=== PATIENT | female | born 1940 | race Caucasian/White ===

== ENCOUNTER 2017-05-26 17:05 | Inpatient (IN) | payer MEDICARE, OTHER ==
[~2017-05-26] VITALS: Ht 154.9 cm; Wt 90.3 kg
--- NOTE | 2017-05-26 17:10 | NUR ---
PT BIBRA FROM SNF TO ER BED 12. PER REPORT, PT IS AGGRESSIVE TO STAFF. PT IS KAZAKH SPEAKING, AAOX 1 TO NAME. WAS GIVEN ULTRAM AND XANAX AT 1330 PRIOR TO TRANSPORT. 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 PLACED ON MONITOR. STABLE VITALS. AWAITING MD ESPINOZA..
--- NOTE | 2017-05-26 17:13 | NUR ---
DR NASSAR AT BEDSIDE FOR EVAL.
--- NOTE | 2017-05-26 17:19 | NUR ---
DIGITAL MEDIA BUYER AT BEDSIDE FOR EVAL.
--- NOTE | 2017-05-26 17:20 | NUR ---
Note undone in EDM - 05/26/17 at 1827 by LALA PT BIBRA FROM SNF TO ER BED 12. PER REPORT, PT IS AGGRESSIVE TO STAFF. PT IS KOREAN SPEAKING, AAOX 1 TO NAME. WAS GIVEN ULTRAM AND XANAX AT 1330 PRIOR TO TRANSPORT. 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 PLACED ON MONITOR. STABLE VITALS. AWAITING MD ESPINOZA..
[2017-05-26 17:24] LABS: BASOPHILS % (AUTO) 0.4 % (0.0-2.0); EOSINOPHILS # (AUTO) 0.2 /CMM (0.0-0.7); EOSINOPHILS % (AUTO) 3.8 % (0.0-6.0); HEMATOCRIT 37 % (33-45); HEMOGLOBIN 12.3 g/dL (11.5-14.8); LYMPHOCYTES % (AUTO) 31.7 % (20.0-44.0); MEAN CORPUSCULAR HEMOGLOBIN 32 PG (26.0-33.0); MEAN CORPUSCULAR HGB CONC 34 g/dl (31.0-36.0); MEAN CORPUSCULAR VOLUME 96 fL (82-100); MONOCYTES # (AUTO) 0.3 /CMM (0.1-1.30); MONOCYTES % (AUTO) 5.3 % (2.0-12.0); NEUTROPHILS # (AUTO) 3.9 /CMM (1.8-8.9); NEUTROPHILS % (AUTO) 58.8 % (43.0-81.0); PLATELET COUNT (AUTO) 192 /CMM (150-450); RDW COEFFICIENT OF VARIATION 12.7 (11.5-15.0); RED BLOOD CELL COUNT(AUTO) 3.83 MIL/uL (4.0-5.2); WHITE BLOOD COUNT (AUTO) 6.4 K/uL (4.3-11.0)
[2017-05-26] MEDS ORDERED: PARO20TA6 PO (17:30)
[2017-05-26] MEDS ORDERED: QUET25TA PO (17:30)
[2017-05-26] MEDS ORDERED: TRAM50TA2 PO (17:30)
[2017-05-26] MEDS ORDERED: ALPR0.5T8 PO (17:30)
[2017-05-26] MEDS ORDERED: IBUP-1955 PO (17:30)
[2017-05-26] MEDS ORDERED: ACET-868 PO (17:30)
[2017-05-26] MEDS ORDERED: ATEN-170 PO (17:30)
[2017-05-26] MEDS ORDERED: GABA-534 PO (17:30)
[2017-05-26] MEDS ORDERED: LOSA50TA3 PO (17:30)
[2017-05-26] MEDS ORDERED: DONE5TAB3 PO (17:30)
[2017-05-26] MEDS ORDERED: FAMO20TA8 PO (17:30)
[2017-05-26] MEDS ORDERED: WARF3TAB29 PO (17:30)
[2017-05-26 17:40] LABS: CALCIUM, SERUM 8.6 mg/dL (8.5-10.1); CARBON DIOXIDE 27 mmol/L (21-32); CHLORIDE 106 mmol/L (98-107); GLUCOSE 115 mg/dL (74-106); POTASSIUM 3.7 mmol/L (3.5-5.1); SODIUM SERUM 141 mmol/L (136-145); UREA NITROGEN, BLOOD 17 mg/dL (7-18)
[2017-05-26 17:46] LABS: ALANINE AMINOTRANSFERASE 23 U/L (12-78); ALBUMIN 2.9 g/dL (3.4-5.0); ALCOHOL, BLOOD < 3 mg/dL (0-0); ALKALINE PHOSPHATASE 81 U/L (46-116); ASPARTATE AMINOTRANSFERASE 25 U/L (15-37); BILIRUBIN,DIRECT 0.1 mg/dL (0.0-0.2); BILIRUBIN,TOTAL 0.3 mg/dL (0.2-1.0); TOTAL PROTEIN, SERUM 6.7 g/dL (6.4-8.2)
[2017-05-26 17:47] LABS: SALICYLATE 0.9 mg/dL (2.8-20.0)
[2017-05-26 18:10] LABS: APPEARANCE,URINE Clear (CLEAR); BILIRUBIN,URINE Negative (NEGATIVE); BLOOD, URINE Moderate Ery/uL (NEGATIVE); COLOR,URINE Yellow (YELLOW); KETONES,URINE Negative (NEGATIVE); LEUKOCYTE ESTERASE ,URINE Negative (NEGATIVE); NITRITE, URINE Negative (NEGATIVE); PH,URINE 5.5 (5.0-8.0); PROTEIN,URINE Negative (NEGATIVE); UGLUCOSE Negative (NEGATIVE); UROBILINOGEN,URINE 0.2 EU/dL (0.2)
[2017-05-26 18:22] LABS: BACTERIA,URINE Rare /HPF (None Seen); SQUAMOUS EPITHELIAL CELL,UR Few /HPF (None Seen); WBC,URINE 0-2 /HPF (0-3)
--- NOTE | 2017-05-26 18:29 | NUR ---
CALLED JAK[facility] AT 1830 FOR PSYCH EVAL, ETA 60 MINS.
[2017-05-26 18:30] LABS: ACETAMINOPHEN < 2 ug/ml (10-30)
--- NOTE | 2017-05-26 19:21 | NUR ---
JAKOB RN AT BEDSIDE FOR PSYCH EVAL.
--- NOTE | 2017-05-26 19:42 | NUR ---
REPORT GIVEN TO CHARLEE. PT AWAITING TRANSFER TO FLOOR.
[2017-05-26] MEDS ORDERED: IBUPROFEN 400 MG TABLET PO STA (20:48)
[2017-05-26 21:00] VITALS: BP 122/50
[2017-05-26] MEDS ORDERED: ACETAMINOPHEN 325 MG TABLET PO PRN ×2 (21:00→21:30)
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
[2017-05-26] MEDS ORDERED: MAGNESIUM HYDROXIDE 30 ML UDC PO PRN (21:30)
[2017-05-26] MEDS ORDERED: MAG HYDROX/AL HYDROX/SIMETH 30 ML UDC PO PRN (21:30)
[2017-05-27 00:54] VITALS: BP 122/50
[2017-05-27 07:47] LABS: BASOPHILS % (AUTO) 0.3 % (0.0-2.0); EOSINOPHILS # (AUTO) 0.2 /CMM (0.0-0.7); EOSINOPHILS % (AUTO) 2.7 % (0.0-6.0); HEMATOCRIT 38 % (33-45); HEMOGLOBIN 12.8 g/dL (11.5-14.8); LYMPHOCYTES # (AUTO) 1.9 /CMM (0.8-4.8); LYMPHOCYTES % (AUTO) 26.1 % (20.0-44.0); MEAN CORPUSCULAR HEMOGLOBIN 32 PG (26.0-33.0); MEAN CORPUSCULAR HGB CONC 33 g/dl (31.0-36.0); MEAN CORPUSCULAR VOLUME 96 fL (82-100); MONOCYTES # (AUTO) 0.4 /CMM (0.1-1.30); MONOCYTES % (AUTO) 5.9 % (2.0-12.0); NEUTROPHILS # (AUTO) 4.7 /CMM (1.8-8.9); PLATELET COUNT (AUTO) 191 /CMM (150-450); RDW COEFFICIENT OF VARIATION 13.4 (11.5-15.0); WHITE BLOOD COUNT (AUTO) 7.2 K/uL (4.3-11.0)
[2017-05-27 08:00] VITALS: BP 141/96
[2017-05-27 08:02] LABS: ALANINE AMINOTRANSFERASE 28 U/L (12-78); ALBUMIN 3.2 g/dL (3.4-5.0); ALKALINE PHOSPHATASE 82 U/L (46-116); ASPARTATE AMINOTRANSFERASE 26 U/L (15-37); BILIRUBIN,TOTAL 0.6 mg/dL (0.2-1.0); CALCIUM, SERUM 8.6 mg/dL (8.5-10.1); CARBON DIOXIDE 27 mmol/L (21-32); CHLORIDE 109 mmol/L (98-107); CREATININE 0.7 mg/dL (0.6-1.3); GLUCOSE 96 mg/dL (74-106); POTASSIUM 3.5 mmol/L (3.5-5.1); SODIUM SERUM 145 mmol/L (136-145); TOTAL PROTEIN, SERUM 7.6 g/dL (6.4-8.2); UREA NITROGEN, BLOOD 14 mg/dL (7-18)
[2017-05-27 08:05] LABS: CHOLESTEROL 140 mg/dL (<200); HDL CHOLESTEROL 36 mg/dL (40-60); LDL 94 mg/dL (0-99); TRIGLYCERIDES 106 mg/dL (30-150)
[2017-05-27] MEDS: FAMOTIDINE (20 MG) 20 MG TABLET PO SCH (08:32)
[2017-05-27] MEDS: ATENOLOL 25 MG TABLET PO SCH ×2 (08:32→17:28)
[2017-05-27] MEDS: LOSARTAN POTASSIUM 50 MG TABLET PO SCH ×2 (08:32→17:28)
[2017-05-27] MEDS: LORAZEPAM 0.5 MG TABLET PO PRN ×2 (08:33→15:37)
[2017-05-27] MEDS: IBUPROFEN 600 MG TABLET PO SCH (08:38)
--- NOTE | 2017-05-27 12:39 | NUR ---
Initial Discharge Note: Patient resides at [facility] [address] [address] ([phone]). caseworker protective services spoke to Delia ([phone]) from the facility who confirmed that patient can return to facility when she is stable and ready for discharge. caseworker protective services will help form a safe and proper discharge.
[2017-05-27] MEDS: TRAMADOL HCL 50 MG TABLET PO PRN (13:06)
--- NOTE | 2017-05-27 13:06 | NUR ---
ADMINISTERED ULTRAM 50 MG PO PRN FOR GENERALIZED PAIN 04/04, PER PATIENT REQUEST, V/S TAKEN BP -132/78, P-78, CONTINUED MONITORING.
[2017-05-27 13:07] LABS: INR 0.99 (0.87-1.13); PROTHROMBIN TIME 10.6 SECS (9.5-12.7)
[2017-05-27] MEDS: QUETIAPINE FUMARATE 25 MG TABLET PO SCH ×2 (13:42→17:28)
--- NOTE | 2017-05-27 15:37 | NUR ---
GPS RN NOTES PATIENT ANXIOUS, DELUSIONAL, GET IRRITABLE EASILY,, ADMINISTERED ATIVAN 0.5 MG PO PRN PRESCRIBED, V/S TAKE BP-130/90, P-71, CONTINUED MONITORING. 1:1 SITTER NEXT TO THE PATIENT FOR SAFETY.
[2017-05-27 16:00] VITALS: BP 130/94
[2017-05-27] MEDS ORDERED: WARFARIN SODIUM 1 MG TABLET PO SCH (17:00)
[2017-05-27] MEDS: WARFARIN SODIUM 2 MG TABLET PO SCH (17:27)
[2017-05-27] MEDS ORDERED: QUETIAPINE FUMARATE 25 MG TABLET PO PRN (18:00)
[2017-05-27] MEDS: SERTRALINE HCL 25 MG TABLET PO SCH (18:45)
--- NOTE | 2017-05-27 19:00 | NUR ---
GPS RN NOTES PATIENT REFUSED ZOLOFT 25 MG PO SCHEDULED 1800 PM, PATIENT CONFUSED, DELUSIONAL. ONCOMING NURSE NOTIFIED FOR CONTINUATION OF CARE.
[2017-05-27 20:00] VITALS: BP 156/94
--- NOTE | 2017-05-27 20:20 | NUR ---
GPS/RN-PATIENT IS SCREAMING,SPITTING,VERBALLY ABUSIVE AND AGGRESSIVE AT STAFF.REFUSED TO TAKE MEDICATION.NON PHARMACOLOGICAL INTERVENTIONS MADE BUT IS INEFFECTIVE.CALLED INFORMED HIM OF PATIENTS BEHAVIOR,HE ORDERED ZYPREXA 5 MG.IM AND ATIVAN 1 MG.IM.
[2017-05-27] MEDS ORDERED: LORAZEPAM INJ 2 MG/ML VIAL IM ONE (20:30)
[2017-05-27] MEDS ORDERED: OLANZAPINE 10 MG VIAL IM ONE (20:30)
[2017-05-27] MEDS: TEMAZEPAM 7.5 MG CAPSULE PO PRN (21:27)
--- NOTE | 2017-05-28 06:32 | NUR ---
RN GPS NOTES PATIENT RESTING HER BED, NO ACUTE DISTRESS NOTED ,NO CHANGES IN STATUS. ALL NEEDS ATTENDED ANTICIPATED , 1:1 SITTER AT BED SIDE FOR PT.SAFETY, WILL ENDORSE TO NEXT SHIFT FOR CONTINUITY CARE
[2017-05-28 08:00] VITALS: BP 158/82
[2017-05-28] MEDS: SERTRALINE HCL 25 MG TABLET PO SCH ×2 (09:00→10:06)
[2017-05-28] MEDS: IBUPROFEN 600 MG TABLET PO SCH ×2 (09:00→10:05)
[2017-05-28] MEDS: QUETIAPINE FUMARATE 25 MG TABLET PO SCH ×3 (09:00→17:00)
[2017-05-28] MEDS: LOSARTAN POTASSIUM 50 MG TABLET PO SCH ×3 (09:00→17:00)
[2017-05-28] MEDS: FAMOTIDINE (20 MG) 20 MG TABLET PO SCH ×2 (09:00→10:05)
[2017-05-28] MEDS: ATENOLOL 25 MG TABLET PO SCH ×3 (09:00→17:00)
[2017-05-28 11:40] LABS: INR 1.01 (0.87-1.13); PROTHROMBIN TIME 10.8 SECS (9.5-12.7)
[2017-05-28 16:00] VITALS: BP 119/72
[2017-05-28] MEDS: WARFARIN SODIUM 2 MG TABLET PO SCH (17:00)
--- NOTE | 2017-05-28 19:00 | NUR ---
GPS RN NOTE: PATIENT IN THE ROOM SLEEPING AT THIS TIME PT REFUSED MEDICATIONS FOR ALL SHIFT OFFERED PT ATIVAN PO PRN PT START SCREAMING AND YELLING , PATIENT NON COMPLIANT WITH TX RESISTANT WITH CARE . ATIVAN WAS WAISTED WITH CN WILL CONTINUE MONITORING AND INDORSE TO INCOMING SHIT RN FOR CONTINUATION OF CARE.
[2017-05-28 20:00] VITALS: BP 136/80
--- NOTE | 2017-05-29 06:38 | NUR ---
boat joiner helper notes: pt refused blood draw for PTT.
[2017-05-29] MEDS: QUETIAPINE FUMARATE 25 MG TABLET PO SCH ×3 (08:47→16:36)
[2017-05-29] MEDS: IBUPROFEN 600 MG TABLET PO SCH ×2 (08:47→09:24)
[2017-05-29] MEDS: FAMOTIDINE (20 MG) 20 MG TABLET PO SCH ×2 (08:47→09:24)
[2017-05-29] MEDS: SERTRALINE HCL 25 MG TABLET PO SCH ×2 (08:47→09:25)
[2017-05-29] MEDS: ATENOLOL 25 MG TABLET PO SCH ×3 (08:47→16:36)
[2017-05-29] MEDS: LOSARTAN POTASSIUM 50 MG TABLET PO SCH ×3 (08:47→16:37)
[2017-05-29 10:24] LABS: INR 1.06 (0.87-1.13); PROTHROMBIN TIME 11.4 SECS (9.5-12.7)
[2017-05-29 16:14] VITALS: BP 99/67
[2017-05-29] MEDS: WARFARIN SODIUM 2 MG TABLET PO SCH (16:35)
[2017-05-29] MEDS: WARFARIN SODIUM 1 MG TABLET PO SCH (16:36)
[2017-05-29 20:29] VITALS: BP 137/73
--- NOTE | 2017-05-30 00:53 | NUR ---
Pt has been with depressed mood, withdrawn, with flat affect, rambling at times, mentally preoccupied, disorganized, & delusional(persecutory).
[2017-05-30 07:58] LABS: INR 1.06 (0.87-1.13); PROTHROMBIN TIME 11.4 SECS (9.5-12.7)
[2017-05-30 08:00] VITALS: BP 119/68
[2017-05-30] MEDS: SERTRALINE HCL 25 MG TABLET PO SCH (09:49)
[2017-05-30] MEDS: LOSARTAN POTASSIUM 50 MG TABLET PO SCH ×2 (09:49→16:30)
[2017-05-30] MEDS: FAMOTIDINE (20 MG) 20 MG TABLET PO SCH (09:49)
[2017-05-30] MEDS: ATENOLOL 25 MG TABLET PO SCH ×2 (09:49→16:30)
[2017-05-30] MEDS: QUETIAPINE FUMARATE 25 MG TABLET PO SCH ×2 (09:49→16:29)
[2017-05-30] MEDS: IBUPROFEN 600 MG TABLET PO SCH (09:49)
[2017-05-30 16:00] VITALS: BP 108/60
[2017-05-30] MEDS: WARFARIN SODIUM 2 MG TABLET PO SCH (16:28)
[2017-05-30] MEDS: WARFARIN SODIUM 1 MG TABLET PO SCH (16:29)
[2017-05-30 21:00] VITALS: BP 109/87
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
[2017-05-31 08:00] VITALS: BP 119/77
[2017-05-31] MEDS: IBUPROFEN 600 MG TABLET PO SCH (08:39)
[2017-05-31] MEDS: FAMOTIDINE (20 MG) 20 MG TABLET PO SCH (08:39)
[2017-05-31] MEDS: SERTRALINE HCL 25 MG TABLET PO SCH (08:39)
[2017-05-31] MEDS: LOSARTAN POTASSIUM 50 MG TABLET PO SCH ×2 (08:40→16:04)
[2017-05-31] MEDS: QUETIAPINE FUMARATE 25 MG TABLET PO SCH ×4 (08:40→22:33)
[2017-05-31] MEDS: ATENOLOL 25 MG TABLET PO SCH ×2 (08:40→16:04)
[2017-05-31] MEDS: LORAZEPAM 0.5 MG TABLET PO PRN ×2 (08:51→16:57)
[2017-05-31 12:51] LABS: INR 1.19 (0.87-1.13); PROTHROMBIN TIME 12.9 SECS (9.5-12.7)
[2017-05-31 16:00] VITALS: BP 101/72
[2017-05-31] MEDS: WARFARIN SODIUM 2 MG TABLET PO SCH (16:17)
[2017-05-31] MEDS: WARFARIN SODIUM 1 MG TABLET PO SCH (17:49)
[2017-05-31] MEDS: DIVALPROEX SODIUM 125 MG CAP.SPRINK PO SCH ×2 (17:51→22:33)
[2017-05-31 20:20] VITALS: BP 114/68
[2017-05-31] MEDS: TRAMADOL HCL 50 MG TABLET PO PRN (22:33)
[2017-06-01 08:00] VITALS: BP 128/68
[2017-06-01 08:07] LABS: INR 1.29 (0.87-1.13)
[2017-06-01] MEDS: IBUPROFEN 600 MG TABLET PO SCH (08:16)
[2017-06-01] MEDS: QUETIAPINE FUMARATE 25 MG TABLET PO SCH ×4 (08:17→21:47)
[2017-06-01] MEDS: ATENOLOL 25 MG TABLET PO SCH ×2 (08:17→16:46)
[2017-06-01] MEDS: FAMOTIDINE (20 MG) 20 MG TABLET PO SCH (08:17)
[2017-06-01] MEDS: LOSARTAN POTASSIUM 50 MG TABLET PO SCH ×2 (08:18→16:31)
[2017-06-01] MEDS: DIVALPROEX SODIUM 125 MG CAP.SPRINK PO SCH ×2 (08:48→21:00)
--- NOTE | 2017-06-01 16:04 | NUR ---
Group Note: Patient stated, "when am I leaving" Patient's mood and affect appeared anxious. Patient remains irritable and anxious supervisor shed workers will discuss case with psychiatrist and will continue to discuss discharge plan with patient.
[2017-06-01 16:18] VITALS: BP 123/77
[2017-06-01] MEDS: WARFARIN SODIUM 7.5 MG TABLET PO SCH (16:42)
--- NOTE | 2017-06-01 19:30 | NUR ---
GPS RN NOTE, RECEIVED PATIENT AWAKE AND IN BED, NO S/S OR COMPLAINTS OF PAIN AT THIS TIME. PATIENT IS DISPLAYING NO S/S OF APPARENT DISTRESS AT THIS TIME. PATIENT BREATHING IS UNLABORED WITH EQUAL RISE AND FALL OF THE CHEST. PATIENT IS ALERT AND ORIENTED X 2-3 ON ROOM AIR WITH A SPO2 97%. PATIENT IS SINHAL[place] SPEAKING ONLY. PATIENT SELECTIVE WITH MEDICATION, ANXIOUS, COOPERATIVE, HYPERVERBAL AT TIMES, AND NEEDS REORIENTATION. PATIENT DENIES SUICIDE AND HOMICIDAL IDEATIONS AT THIS TIME. PATIENT ASSISTED WITH TURNING AND REPOSITIONING Q2HR AND PRN FOR COMFORT AND CIRCULATION. PATIENT HAS NO NEEDS AT THIS TIME. PATIENT EDUCATED ON THE USE OF THE CALL PEARSON. PATIENT BED SIDE RAILS UP X2 FOR SAFETY, BED IS LOCKED AND LOW WILL CONTINUE TO MONITOR AND MAINTAIN SAFETY.
[2017-06-01 20:42] VITALS: BP 124/93
--- NOTE | 2017-06-01 21:47 | NUR ---
GPS RN NOTE, PATIENT REFUSED TO TAKE DEPAKOTE SPRINKLE 125MG PO Q12HR, AND SEROQUEL 25MG PO HS. OFFERED DEPAKOTE SPRINKLE AND SEROQUEL THREE TIMES BUT STILL PATIENT REFUSED STATING, " I ONLY TAKE TWO MEDICATIONS IN THE MORNING AND I DON'T TAKE MEDICATION TO HELP ME SLEEP ". EDUCATED THE PATIENT ON THE RISK AND BENEFITS OF TAKING AND REFUSING AFOREMENTIONED MEDICATIONS. WILL CONTINUE TO MONITOR THIS PATIENT.
[2017-06-02 07:51] LABS: INR 1.42 (0.87-1.13); PROTHROMBIN TIME 15.5 SECS (9.5-12.7)
[2017-06-02 08:00] VITALS: BP 151/91
[2017-06-02] MEDS: IBUPROFEN 600 MG TABLET PO SCH (08:23)
[2017-06-02] MEDS: FAMOTIDINE (20 MG) 20 MG TABLET PO SCH (08:23)
[2017-06-02] MEDS: QUETIAPINE FUMARATE 25 MG TABLET PO SCH ×4 (08:23→21:53)
[2017-06-02] MEDS: DIVALPROEX SODIUM 125 MG CAP.SPRINK PO SCH ×2 (08:23→21:53)
[2017-06-02] MEDS: ATENOLOL 25 MG TABLET PO SCH ×2 (08:24→16:46)
[2017-06-02] MEDS: LOSARTAN POTASSIUM 50 MG TABLET PO SCH ×2 (08:24→16:45)
[2017-06-02] MEDS ORDERED: DIVALPROEX SODIUM 125 MG CAP.SPRINK PO ONE (15:30)
[2017-06-02 16:00] VITALS: BP 129/81
--- NOTE | 2017-06-02 16:25 | NUR ---
ASSOCIATE PROFESSOR OF COMMUNICATION-NOTES MARIA E GARNER MADE AWARE OF PATIENT INR RESULT TODAY. STATED WILL CONTINUE COUMADIN 7.5MG P.O Q 5PM.
[2017-06-02] MEDS: WARFARIN SODIUM 7.5 MG TABLET PO SCH (16:49)
[2017-06-02 20:00] VITALS: BP 128/81
[2017-06-02] MEDS: TEMAZEPAM 7.5 MG CAPSULE PO PRN (21:53)
[2017-06-03 07:15] LABS: INR 1.58 (0.87-1.13); PROTHROMBIN TIME 17.4 SECS (9.5-12.7)
[2017-06-03 08:00] VITALS: BP 153/70
[2017-06-03] MEDS: IBUPROFEN 600 MG TABLET PO SCH (08:55)
[2017-06-03] MEDS: DIVALPROEX SODIUM 125 MG CAP.SPRINK PO SCH ×2 (08:55→21:48)
[2017-06-03] MEDS: FAMOTIDINE (20 MG) 20 MG TABLET PO SCH (08:56)
[2017-06-03] MEDS: QUETIAPINE FUMARATE 25 MG TABLET PO SCH ×4 (08:56→21:48)
[2017-06-03] MEDS: ATENOLOL 25 MG TABLET PO SCH ×2 (08:56→16:53)
[2017-06-03] MEDS: LOSARTAN POTASSIUM 50 MG TABLET PO SCH ×2 (09:00→16:54)
--- NOTE | 2017-06-03 15:47 | NUR ---
AGRICULTURAL PURCHASING AGENT-NOTES MARIA E GARNER SEEN THE PATIENT AWARE OF PATIENT INR RESULT WITH VERBAL ORDER TO CONTINUE COUMADIN 7.5MG P.O Q 5PM. PT/INR DAILY. NOTED AND CARRIED OUT.
[2017-06-03 16:16] VITALS: BP 118/93
[2017-06-03] MEDS: WARFARIN SODIUM 7.5 MG TABLET PO SCH (16:56)
[2017-06-03 20:00] VITALS: BP 116/74
[2017-06-03] MEDS: TEMAZEPAM 7.5 MG CAPSULE PO PRN (21:49)
--- NOTE | 2017-06-04 07:30 | NUR ---
gps rn notes/ on skin assessment found bruise on left upper back, right inner thigh, right lower leg, and left inner leg, picture taken.
[2017-06-04 08:00] VITALS: BP 129/66
[2017-06-04 08:16] LABS: INR 1.86 (0.87-1.13); PROTHROMBIN TIME 20.7 SECS (9.5-12.7)
[2017-06-04] MEDS: LOSARTAN POTASSIUM 50 MG TABLET PO SCH ×2 (09:28→18:16)
[2017-06-04] MEDS: IBUPROFEN 600 MG TABLET PO SCH (09:28)
[2017-06-04] MEDS: QUETIAPINE FUMARATE 25 MG TABLET PO SCH ×4 (09:28→21:36)
[2017-06-04] MEDS: DIVALPROEX SODIUM 125 MG CAP.SPRINK PO SCH ×2 (09:28→21:36)
[2017-06-04] MEDS: FAMOTIDINE (20 MG) 20 MG TABLET PO SCH (09:28)
[2017-06-04] MEDS: ATENOLOL 25 MG TABLET PO SCH ×2 (09:29→18:13)
[2017-06-04 16:00] VITALS: BP 131/69
[2017-06-04] MEDS: WARFARIN SODIUM 7.5 MG TABLET PO SCH (18:15)
[2017-06-04 20:00] VITALS: BP 146/91
[2017-06-04] MEDS: TEMAZEPAM 7.5 MG CAPSULE PO PRN (21:36)
[2017-06-05 07:32] LABS: INR 1.99 (0.87-1.13); PROTHROMBIN TIME 22.3 SECS (9.5-12.7)
[2017-06-05 08:00] VITALS: BP 160/89
[2017-06-05] MEDS: DIVALPROEX SODIUM 125 MG CAP.SPRINK PO SCH ×2 (08:48→21:54)
[2017-06-05] MEDS: IBUPROFEN 600 MG TABLET PO SCH (08:48)
[2017-06-05] MEDS: FAMOTIDINE (20 MG) 20 MG TABLET PO SCH (08:49)
[2017-06-05] MEDS: LOSARTAN POTASSIUM 50 MG TABLET PO SCH ×2 (08:49→16:33)
[2017-06-05] MEDS: ATENOLOL 25 MG TABLET PO SCH ×2 (08:49→16:34)
[2017-06-05] MEDS: QUETIAPINE FUMARATE 25 MG TABLET PO SCH ×4 (08:49→21:54)
--- NOTE | 2017-06-05 13:13 | NUR ---
GPS RN NOTES PATIENT REQUESTED TYLENOL 650 MG PO PRN PRESCRIBED, CONTINUED MONITORING.
[2017-06-05 16:09] VITALS: BP 118/76
[2017-06-05] MEDS: WARFARIN SODIUM 7.5 MG TABLET PO SCH (16:35)
[2017-06-05 17:23] LABS: APPEARANCE,URINE SL CLOUDY (CLEAR); BILIRUBIN,URINE NEGATIVE (NEGATIVE); BLOOD, URINE TRACE-INTA Ery/uL (NEGATIVE); COLOR,URINE DARK YELLO (YELLOW); KETONES,URINE TRACE (NEGATIVE); LEUKOCYTE ESTERASE ,URINE NEGATIVE (NEGATIVE); NITRITE, URINE NEGATIVE (NEGATIVE); PROTEIN,URINE NEGATIVE (NEGATIVE); UGLUCOSE NEGATIVE (NEGATIVE)
[2017-06-05 17:43] LABS: BACTERIA,URINE 2+ /HPF (None Seen)
--- NOTE | 2017-06-05 18:00 | NUR ---
GPS RN NOTES/ URINE LAB RESULT NOTIFIED RECREATION ACTIVITIES COORDINATOR ISHAN GARNER, NO NEW ORDERS GIVEN AT THIS TIME. ENDORSED ONCOMING NURSE TO FOLLOW UP.
[2017-06-05 20:02] VITALS: BP 109/73
--- NOTE | 2017-06-06 00:50 | NUR ---
Pt has been a bit confused, passive, withdrawn, & depressed but compliant with care w/o any promptings.
[2017-06-06 07:46] LABS: INR 2.43 (0.87-1.13); PROTHROMBIN TIME 27.5 SECS (9.5-12.7)
[2017-06-06 08:00] VITALS: BP 120/78
[2017-06-06 08:31] VITALS: BP 120/78
[2017-06-06] MEDS: FAMOTIDINE (20 MG) 20 MG TABLET PO SCH (08:31)
[2017-06-06] MEDS: ATENOLOL 25 MG TABLET PO SCH ×2 (08:31→16:54)
[2017-06-06] MEDS: IBUPROFEN 600 MG TABLET PO SCH (08:31)
[2017-06-06] MEDS: LOSARTAN POTASSIUM 50 MG TABLET PO SCH ×2 (08:32→16:53)
[2017-06-06] MEDS: QUETIAPINE FUMARATE 25 MG TABLET PO SCH ×3 (08:32→16:53)
--- NOTE | 2017-06-06 09:09 | NUR ---
gang worker attempted to contact patient's family Yael ([phone]) to inform her that patient is being discharged to [facility] and [address] [address]. ([phone]). However, Yael was unavailable. gang worker left her a voicemail with detailed information regarding patient's discharge and also left her direct contact number. gang worker will attempt again later.
--- NOTE | 2017-06-06 09:20 | NUR ---
gps rn notes/ patient c/o pain right flank area, and pain radiate chest, and neck area, called THIRD GRADE TEACHER Bossman , and get order stat troponin, and EKG, order taken, and carried out.
[2017-06-06] MEDS: DIVALPROEX SODIUM 125 MG CAP.SPRINK PO SCH (09:29)
--- NOTE | 2017-06-06 10:22 | NUR ---
custodial maintenance worker spoke to patient's Chidi Gillette ([phone]) to inform him that patient is being discharged to [facility] and [address] [address]. Patient's was agreeable with the discharge plan.
[2017-06-06 11:28] LABS: BASOPHILS % (AUTO) 0.2 % (0.0-2.0); EOSINOPHILS # (AUTO) 0.1 /CMM (0.0-0.7); EOSINOPHILS % (AUTO) 1.3 % (0.0-6.0); HEMATOCRIT 38 % (33-45); HEMOGLOBIN 12.4 g/dL (11.5-14.8); LYMPHOCYTES # (AUTO) 1.2 /CMM (0.8-4.8); LYMPHOCYTES % (AUTO) 11.8 % (20.0-44.0); MEAN CORPUSCULAR HEMOGLOBIN 31 PG (26.0-33.0); MEAN CORPUSCULAR HGB CONC 33 g/dl (31.0-36.0); MEAN CORPUSCULAR VOLUME 96 fL (82-100); MONOCYTES # (AUTO) 0.4 /CMM (0.1-1.30); MONOCYTES % (AUTO) 3.6 % (2.0-12.0); NEUTROPHILS # (AUTO) 8.7 /CMM (1.8-8.9); NEUTROPHILS % (AUTO) 83.1 % (43.0-81.0); PLATELET COUNT (AUTO) 162 /CMM (150-450); RDW COEFFICIENT OF VARIATION 13.6 (11.5-15.0); RED BLOOD CELL COUNT(AUTO) 3.95 MIL/uL (4.0-5.2); WHITE BLOOD COUNT (AUTO) 10.5 K/uL (4.3-11.0)
[2017-06-06 11:31] LABS: CALCIUM, SERUM 8.6 mg/dL (8.5-10.1); CARBON DIOXIDE 30 mmol/L (21-32); CHLORIDE 105 mmol/L (98-107); CREATININE 0.7 mg/dL (0.6-1.3); GLUCOSE 93 mg/dL (74-106); MAGNESIUM 2.1 mg/dL (1.8-2.4); POTASSIUM 3.5 mmol/L (3.5-5.1); SODIUM SERUM 143 mmol/L (136-145); UREA NITROGEN, BLOOD 20 mg/dL (7-18)
[2017-06-06 16:00] VITALS: BP 118/60
--- NOTE | 2017-06-06 16:18 | NUR ---
Discharge Note: Patient will be discharged to [facility] [place] [id number] [facility] [place] [address] ([phone]). Via ambulance. Patient's Chidi Gillette ([phone]) has been informed and is agreeable with the discharge plan. Patient's mood and affect are appropriate. Patient denies suicidal and homicidal ideations. Patient will follow-up with psychiatrist Dr. Roman ([phone]) at the facility on 06/08/17 at 2:00PM in which she will further discuss her benzodiazepine use. Facilitated info to IDT team who are in agreement with discharge arrangement. The multidisciplinary exitcare form was done, printed, signed, and given to the patient.
[2017-06-06] MEDS: WARFARIN SODIUM 7.5 MG TABLET PO SCH (16:53)
[2017-06-06 16:54] VITALS: BP 118/60
--- NOTE | 2017-06-06 17:00 | NUR ---
GPS AUTO BODY TECHNICIAN NOTES PATIENT D/C AT THIS TIME GOING TO D/C SNF.DR MANZANO, AND [facility] WILL FOLLOW PATIENT IN THE FACILITY. PATIENT A/O X2, MED COMPLIANT, V/S STABLE, MEDICALLY STABLE, NO C/O PAIN. PT DENIED SI/HI/AVH AT THIS TIME. MED RECONCILIATION, AND DISCHARGE ORDER REVIEWED AND EXPLAINED TO. REPORT GIVEN SNF RN AIDE. RN VERBALIZED UNDERSTANDING. BELONGING RETURNED BACK TO THE PATIENT. PICTURE TAKEN, PATIENT REFUSED SIGN PAPERWORK. PATIENT FILM COLOR TESTER BY AMBULANCE.
== END 2017-06-06 17:00 | DRG 885 ==
LOC: ER 17:09 → GPS 20:45
PROVIDERS: ADMIT Psychiatry & Neurology Psychosomatic Medicine; ATTEND Psychiatry & Neurology Psychosomatic Medicine
DX: F31.9 Bipolar disorder, unspecified (principal); E44.0 Moderate protein-calorie malnutrition; F03.91 Unspecified dementia, unspecified severity, with behavioral disturbance; E88.81 Metabolic syndrome and other insulin resistance; I50.9 Heart failure, unspecified; I48.0 Paroxysmal atrial fibrillation; F29 Unspecified psychosis not due to a substance or known physiological condition; E66.9 Obesity, unspecified; F41.9 Anxiety disorder, unspecified; K21.9 Gastro-esophageal reflux disease without esophagitis; Z91.14 Patient's other noncompliance with medication regimen; Z90.49 Acquired absence of other specified parts of digestive tract; Z79.01 Long term (current) use of anticoagulants; Z79.899 Other long term (current) drug therapy; Z68.38 Body mass index [BMI] 38.0-38.9, adult
CPT/HCPCS: 36415; 70450-TC; 80048-TC; 80053-TC; 80061-TC; 80076-TC; 80305; 81000-TC; 83735-TC; 84484-TC; 85025-TC; 85610-TC; 87081-TC; 87086-TC; A4606; G0480; J2060; J3490; Z7610